=== PATIENT | female | born 1965 | race Caucasian/White ===

== ENCOUNTER 2018-06-12 06:24 | Emergency (ER) | payer BC | END 2018-06-12 07:44 | disposition home or self-care (01) | LOC: FTE 06:24 | DX: J06.9 Acute upper respiratory infection, unspecified (principal) | CPT/HCPCS: 99283 ==

== ENCOUNTER 2018-12-05 17:08 | Emergency (ER) | payer BC ==
[2018-12-05] MEDS: LORAZEPAM 0.5 MG TAB PO (20:13)
== END 2018-12-05 20:53 | disposition home or self-care (01) ==
LOC: E/R 17:08
DX: R42 Dizziness and giddiness (principal)
CPT/HCPCS: 70450; 99284-25